=== PATIENT | female | born 1995 | race Caucasian/White ===

== ENCOUNTER 2021-11-27 07:49 | Emergency (ER) | payer MEDICAID ==
[2021-11-27] MEDS ORDERED: Sodium Chloride 0.9% 1,000 ML IV ONE ×2 (08:14→08:27)
[2021-11-27] MEDS ORDERED: Famotidine 20 MG/2 ML SDV IVPUSH ONE (08:14)
[2021-11-27] MEDS ORDERED: Ondansetron 4 MG/2 ML SDV IVPUSH ONE (08:14)
[2021-11-27 08:48] LABS: BLOOD UREA NITROGEN,BUN 13 mg/dL (7.0-18.0); CARBON DIOXIDE,CO2 24.4 mmol/L (21.0-32.0); CHLORIDE,CL 97 mmol/L (98-107); GLUCOSE RANDOM 93 mg/dL (74-106); LIPASE 65 U/L (73-393); POTASSIUM,K 3.2 mmol/L (3.5-5.1); SODIUM,NA 136 mmol/L (136-145)
[2021-11-27 09:10] LABS: CORONAVIRUS COVID-19 NAA NEGATIVE (NEGATIVE); INFLUENZA A NAA NEGATIVE (NEGATIVE); INFLUENZA B NAA NEGATIVE (NEGATIVE)
[2021-11-27] MEDS ORDERED: Potassium Chloride 20 MEQ Tab.ER PO ONE (09:29)
== END 2021-11-27 10:25 | disposition home or self-care (01) ==
LOC: MW.ED 07:49
DX: K29.00 Acute gastritis without bleeding (principal); Z20.822 Contact with and (suspected) exposure to COVID-19
CPT/HCPCS: 0240U; 36415; 80053; 80305; 81001; 83605; 83690; 83735; 84703; 85025; 96361; 96374; 96375; 99284; A9270; J2405; J3490; J7030; 99283